=== PATIENT | male | born 1980 | race Caucasian/White ===

== ENCOUNTER 2019-02-13 15:06 | Emergency (ER) | payer SELFPAY ==
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
[2019-02-13 15:15] VITALS: BP 143/71; PULSE 80; RESP 18; TEMP 36.8; O2SAT 96
--- NOTE | 2019-02-13 15:26 | DI.RAD_ITS ---
SYMPTOM/DIAGNOSIS: TRAUMA, PAIN LEFT SHOULDER: Five views were obtained. There is mild elevation of the distal clavicle with respect to the acromion raising the possibility of an acromioclavicular separation. There is no evidence of acute fracture or glenohumeral dislocation.
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
[2019-02-13] MEDS: Ibuprofen 600 MG TAB PO (16:14)
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
== END 2019-02-13 17:20 | disposition home or self-care (01) ==
PROVIDERS: Emergency Provider Nurse Practitioner Family
DX: S43.112A Subluxation of left acromioclavicular joint, initial encounter (principal); V17.0XXA Pedal cycle driver injured in collision with fixed or stationary object in nontraffic accident, initial encounter
CPT/HCPCS: 99283; 73030; 99282; L3650